=== PATIENT | female | born 1980 | race Caucasian/White ===

== ENCOUNTER 2021-05-17 08:19 | Outpatient (CLI) | payer BC ==
[2021-05-17 10:32] LABS: Hemoglobin 14.1 g/dL (12.0-15.5); Mean Corpuscular HGB CONC 32.9 g/dL (32.0-36.0); Mean Corpuscular Volume 97.5 fl (81.6-98.3); Mean Platelet Volume 10.1 fl (7.4-10.4); Platelet Count 251 10x3/uL (150-450); RBC Distribution Width 11.5 % (11.5-14.5); White Blood Cell (WBC) Count 4.5 10x3/uL (3.5-10.5)
[2021-05-17 10:40] LABS: BHCG - Serum Negative (NEGATIVE); Pregs Control Background? CLEAR/WHITE (CLR/WHITE); Pregs Control Bar Appear? YES (CONTROL BAR)
[2021-05-17 17:42] LABS: SARS-CoV-2 PCR by NAA Not Detected (NotDetected)
== END 2021-05-17 08:20 | disposition home or self-care (01) ==
LOC: CSHLAB 08:19
PROVIDERS: ATTEND Obstetrics & Gynecology
DX: Z01.812 Encounter for preprocedural laboratory examination (principal); Z20.822 Contact with and (suspected) exposure to COVID-19; N39.3 Stress incontinence (female) (male)
CPT/HCPCS: 84703; 85027; 86850; 86870; 86900; 86901; U0003; U0005

== ENCOUNTER 2021-05-22 12:00 | Day surgery (SDC) | payer BC ==
[2021-05-11 13:56] VITALS: BMI 20.7
[2021-05-17 10:32] LABS: Hemoglobin 14.1 g/dL (12.0-15.5); Mean Corpuscular HGB CONC 32.9 g/dL (32.0-36.0); Mean Corpuscular Volume 97.5 fl (81.6-98.3); Mean Platelet Volume 10.1 fl (7.4-10.4); Platelet Count 251 10x3/uL (150-450); RBC Distribution Width 11.5 % (11.5-14.5); White Blood Cell (WBC) Count 4.5 10x3/uL (3.5-10.5)
[2021-05-17 10:40] LABS: BHCG - Serum Negative (NEGATIVE); Pregs Control Background? CLEAR/WHITE (CLR/WHITE); Pregs Control Bar Appear? YES (CONTROL BAR)
[2021-05-17 17:42] LABS: SARS-CoV-2 PCR by NAA Not Detected (NotDetected)
[~2021-05-22 12:00] MED LIST: CeleCOXIB 100 MG CAP ONE; Lidocaine 1% MPF 2 ML VIAL ONE
[2021-05-22] MEDS ORDERED: Lidocaine 1% (PF) 30 ML VIAL ONE (12:02)
[2021-05-22] MEDS ORDERED: Glycopyrrolate 0.2 MG/ML 5 ML SYRINGE ONE (12:09)
[2021-05-22] MEDS ORDERED: Fentanyl 100 MCG/2 ML VIAL ONE (12:09)
[2021-05-22] MEDS ORDERED: PROPOFOL 40 ML ONE (12:09)
[2021-05-22] MEDS ORDERED: Lidocaine 1% PF 5 ML VIAL ONE (12:09)
[2021-05-22] MEDS ORDERED: Ondansetron PF 4 MG/2 ML Vial ONE (12:10)
[2021-05-22] MEDS ORDERED: Ketorolac Tromethamine 30 MG/ML VIAL ONE (12:10)
[2021-05-22] MEDS ORDERED: Dexamethasone 4 mg/ml Vial ONE (12:10)
[2021-05-22] MEDS ORDERED: PHENYLEPHRINE-NS 100 MCG/ML 10 ML SYRINGE ONE (12:12)
[2021-05-22] MEDS ORDERED: ceFAZolin 2 GM/Dextrose 50 ML IVPB ONE (12:13)
[2021-05-22] MEDS ORDERED: Midazolam HCl 2 mg/2 ml Vial ONE (12:17)
[2021-05-22] MEDS ORDERED: Metoclopramide HCl 10 MG/2 ML VIAL ONE (12:57)
== END 2021-05-22 15:20 | disposition home or self-care (01) ==
LOC: CSHSDC 12:00
PROVIDERS: ATTEND Obstetrics & Gynecology
DX: N39.3 Stress incontinence (female) (male) (principal); F41.9 Anxiety disorder, unspecified; Z79.899 Other long term (current) drug therapy
CPT/HCPCS: 84703; 85027; 86850; 86870; 86900; 86901; 86922; C1781; J0690; J1100; J1885; J2001; J2250; J2405; J2704; J2765; J3010; U0003; U0005